=== PATIENT | female | born 1955 | race Caucasian/White ===

== ENCOUNTER 2017-05-28 21:50 | Inpatient (IN) ==
[2017-05-28] MEDS ORDERED: NS 1,000 ML IV ONE (22:14)
[2017-05-28] MEDS ORDERED: SALINE FLUSH 10ml SYRINGE IVF PRN (22:14)
[2017-05-28] MEDS ORDERED: NALOXONE 0.4 MG/ML INJECTION IVP ONE ×2 (22:14→23:20)
--- NOTE | 2017-05-28 22:20 | Emergency Department Report ---
Overdose HPI - General Chief Complaint: Overdose Stated Complaint: n/a Time Seen by Provider: 05/28/17 22:13 - History of Present Illness HPI Narrative: 62-year-old female presents with acute overdose. She had gallbladder surgery yesterday and took 25 oxycodone today as well as possibly drank up to a liter of vodka. EMS states that there is a history of narcotic issues. Patient was found with O2 sats in the 60s and systolic blood pressure 70. - Related Data Home Medications Medication Instructions Recorded Confirmed ClonazePAM [Klonopin] 0.5 mg PO TID PRN 04/11/17 05/28/17 Gabapentin [Neurontin] 600 mg PO TID 04/11/17 05/28/17 Ibuprofen 800 mg PO PRN PRN 04/11/17 05/28/17 Solifenacin Succinate [Vesicare] 10 mg PO DAILY 04/11/17 05/28/17 Venlafaxine HCl [Venlafaxine HCl 150 mg PO DAILY 05/26/17 05/28/17 ER] Oxycodone HCl [Roxicodone] 15 mg PO QID 05/28/17 05/28/17 Allergies Allergy/AdvReac Type Severity Reaction Status Date / Time No Known Allergies Allergy Verified 05/26/17 06:46 Review of Systems All systems: reviewed and negative except as stated PFSH Patient Stated Medical History Cerebrovascular Accident No Paralysis No Seizures No Syncope No Dental Problems Yes: UPPER AND LOWER DENTURES Angina No Cardiac Arrhythmia No Congestive Heart Failure No Coronary Artery Disease No Heart Murmur No Hypertension No Hypotension No Myocardial Infarction No Rheumatic Fever No Valvular Heart Disease No Other Cardiology No Asthma No Bronchitis No Chronic Obstructive Pulmonary No Disease (COPD) Pneumonia No Pulmonary Edema No Pulmonary Embolism No Sleep Apnea Yes: UNDIAGNOSED, PT THINKS SHE HAS IT Tuberculosis No Other Respiratory No Cirrhosis No Gastroesophageal Reflux Yes Disease Gastrointestinal Bleeding No Hepatitis No Hiatal Hernia No Obstructive Bowel No Ulcer No Other GI No Other Yes: taking vesicare-overactive bladder Osteoarthritis No Other Musculoskeletal No MRSA Yes Depression No Endometriosis Yes Clinic Medical History Abdominal pain (Acute Medical) Cholelithiasis (Acute Medical) Contusion of rib on left side (Inactive Medical) Fall (Inactive Medical) Surgical History: Colon resection - Social History Smoking status: Current every day smoker Substance use type: does not use Does patient use chewing tobacco?: No Physical Exam - Limitations Limitations: altered mental status - General General appearance: alert, lethargic - Normal Exams: Head:: Normocephalic without trauma Chest/Respirations:: Clear all baxter, with good airflow, and symmetry bilaterally Abdomen:: Bowel sounds positive, soft, non-tender, non-distended, no hepatosplenomegaly, masses or bruits noted - Cardiovascular Cardiovascular exam: Present: bradycardia Course Vital Signs Temperature 97.7 F 05/28/17 21:55 Pulse Rate 97 05/28/17 21:55 Respiratory Rate 8 L 05/28/17 21:55 Blood Pressure 91/59 05/28/17 21:55 Pulse Oximetry 56 L 05/28/17 21:55 Temperature 97.7 F 05/28/17 21:55 Pulse Rate 84 05/29/17 01:00 Respiratory Rate 20 05/29/17 01:00 Blood Pressure 92/55 05/29/17 01:00 Pulse Oximetry 94 05/29/17 01:00 Overdose - MDM Narrative Medical decision making narrative: Patient required 0.4 mg of Narcan immediately on arrival. Oxygen saturation improved from 70% on 2 L nasal cannula to 94%. Labs were ordered and IV fluids started with 1 L of normal saline. Labs are ordered. White count was elevated at 17 with significant left shift. Chest x-ray shows bilateral aspiration. Patient required fluid resuscitation as well as a second dose of Narcan. Blood cultures ordered, Rocephin 1 g given IV. Creatinine 2.6. Fluid resuscitation initiated. - Differential Diagnosis Likely: suicide attempt by multiple drug overdose, poisoning by opiate or related narcotic, drug overdose, accidental drug ingestion - Medical Records Attestation: I reviewed the patient's medical records. - Lab Data Attestation: I reviewed the patient's lab results. Result diagrams: 05/28/17 23:10 05/28/17 23:10 Lab Results 05/28/17 05/28/17 05/29/17 Range/Units 23:10 23:10 00:04 WBC 17.7 H D (4.5-11.0) T/MM3 RBC 4.14 (4.00-5.20) M/MM3 Hgb 11.0 L (12-16) GM/DL Hct 36.3 (36-46) % MCV 87.7 (80-100) UM3 MCH 26.6 (26-34) UUG MCHC 30.3 L (31-37) GM/DL RDW Std Deviation 46.9 (36.9-50.2) FL Plt Count 372 (130-400) T/MM3 MPV 10.4 (9.4-12.4) UM3 Immature Gran % (Auto) Not performed Neut % (Auto) Not performed Lymph % (Auto) Not performed Jack % (Auto) Not performed Eos % (Auto) Not performed Baso % (Auto) Not performed Neut # (Auto) Not performed Lymph # (Auto) Not performed Jack # (Auto) Not performed Eos # (Auto) Not performed Baso # (Auto) Not performed Abs Immat Gran (auto) Not performed Neutrophils % (Manual) 79.0 H (33-66) % Band Neutrophils % 3.0 (0-6) % Lymphocytes % (Manual) 13.0 L (23-45) % Monocytes % (Manual) 5.0 (0-9.0) % Neutrophils # (Manual) 14.0 H (1.8-7.7) T/MM3 Band Neutrophils # 0.5 T/MM3 Lymphocytes # (Manual) 2.3 (1-4.8) T/MM3 Monocytes # (Manual) 0.9 H (0-0.8) T/MM3 RBC Morph Comment Normal Turbidity < 20 (0-20) Sodium 136 D (134-144) MEQ/L Potassium 4.3 D (3.6-5) MEQ/L Chloride 99 D (98-107) MEQ/L Carbon Dioxide 23 (22-30) MEQ/L Anion Gap 14 (5-15) MEQ/L BUN 19.0 H D (7-17) MG/DL Creatinine 2.6 H D (0.7-1.2) MG/DL GFR Calculation 19 BUN/Creatinine Ratio 7 (6-26) RATIO Glucose 127 H (65-110) MG/DL Calculated Osmolality 266 (261-280) MOSM/KG Calcium 8.4 (8.4-10.2) MG/DL Total Bilirubin 0.80 (0.20-1.30) MG/DL Icterus Index < 2 (0-7) AST 62 H D (14-36) U/L ALT 72 H D (9-52) U/L Alkaline Phosphatase 162 H (38-126) U/L Total Protein 7.4 (6.3-8.2) G/DL Albumin 3.9 (3.5-5.0) G/DL Globulin 3.5 (2.4-3.6) G/DL Albumin/Globulin Ratio 1.1 (1.1-2.2) RATIO Plasma Lactate 1.5 (0.6-2.2) MMOL/L Specimen Hemolysis 34 H (0-25) Salicylates < 1.0 L (2-20) MG/DL Acetaminophen < 10 L (10-30) UG/ML Alcohol, Quantitative <10 (<10) MG/DL - Radiology Data Attestation: I reviewed the patient's radiology results. Disposition Clinical Impression: Poisoning by opiate or related narcotic, Aspiration pneumonia, Renal insufficiency Disposition: 02 To [facility] [place] Condition: Stable Time of Disposition: 02:54 - Seen By: physician
[2017-05-28] MEDS: NS 1,000 ML IV SCH (23:23)
[2017-05-29] MEDS ORDERED: CEFTRIAXONE 1 G in NS 100 ML IV SCH ×2 (00:15→02:00)
[2017-05-29] MEDS ORDERED: CEFTRIAXONE (ER USE ONLY) 1 GM in NS 100 ML IV ONE (01:53)
[2017-05-29] MEDS ORDERED: PIPERACILLIN/TAZOBACTAM 3.375 GM in NS 100 ML IV SCH (02:15)
[2017-05-29] MEDS ORDERED: ONDANSETRON 4 MG/2 ML INJECTION IVP PRN (02:51)
[2017-05-29] MEDS ORDERED: NALOXONE 0.4 MG/ML INJECTION IVP PRN (02:51)
[2017-05-29 03:08] VITALS: BMI 41.7
--- NOTE | 2017-05-29 04:27 | History & Physical Report ---
History of Present Illness Date: 05/29/17 Chief complaint: obtunded HPI: The pt had an outpt open cholecystectomy 2 days ago and was released to go home on 05/27. She was given #40 5mg oxycodones, she was found by her daughter today confused and obtunded, unable to awake or arouse. There were less than 20 tabletes left in the bottle, she told the EMT's that she had also drunk a liter of vodka but to me she states she was "only kidding". The pt was very somnulent during my interview but she was able to answer some questions but quickly nodded off to sleep only after a couple of seconds while I was talking to her. Review of Systems - Constitutional Constitutional: Present: daytime sleepiness, headache(s), lethargy. Absent: fever(s) - EENMT Eyes: Present: as per HPI - Cardiovascular Cardiovascular: Absent: chest pain, edema - Respiratory Respiratory: Absent: cough, dyspnea - Gastrointestinal Gastrointestinal: Present: abdominal pain, constipation. Absent: nausea, vomiting [facility] Patient Stated Medical History Paralysis No Seizures No Syncope No Dental Problems Yes: UPPER AND DENTURES Angina No Cardiac Arrhythmia No Congestive Heart Failure No Coronary Artery Disease No Heart Murmur No Hypertension No Hypotension No Myocardial Infarction No Rheumatic Fever No Valvular Heart Disease No Other Cardiology No Asthma No Bronchitis No Chronic Obstructive Pulmonary No Disease (COPD) Pneumonia No Pulmonary Edema No Pulmonary Embolism No Sleep Apnea Yes: UNDIAGNOSED, PT THINKS SHE HAS IT Tuberculosis No Other Respiratory No Cirrhosis No Gastrointestinal Bleeding No Hepatitis No Hiatal Hernia No Obstructive Bowel No Ulcer No Other GI No Other Yes: taking vesicare-overactive bladder Osteoarthritis Yes Other Musculoskeletal Yes: osteoperosis MRSA Yes Depression Yes Endometriosis Yes Clinic Medical History Abdominal pain (Acute Medical) Cholelithiasis (Acute Medical) Poisoning by opiate or related narcotic (Acute Medical) Aspiration pneumonia (Acute Medical) Renal insufficiency (Acute Medical) Contusion of rib on left side (Inactive Medical) Fall (Inactive Medical) Surgical History: Colon resection - Social History Smoking status: Current every day smoker Substance use type: does not use Alcohol intake frequency: former alcohol drinker Housing: apartment Household members: none Medications Home Medications Medication Instructions Recorded Confirmed Type ClonazePAM [Klonopin] 0.5 mg PO TID PRN 04/11/17 05/28/17 History Gabapentin [Neurontin] 600 mg PO TID 04/11/17 05/28/17 History Ibuprofen 800 mg PO PRN PRN 04/11/17 05/28/17 History Solifenacin Succinate [Vesicare] 10 mg PO DAILY 04/11/17 05/28/17 History Venlafaxine HCl [Venlafaxine HCl 150 mg PO DAILY 05/26/17 05/28/17 History ER] Oxycodone HCl [Roxicodone] 15 mg PO QID 05/28/17 05/28/17 History Allergies Allergy/AdvReac Type Severity Reaction Status Date / Time No Known Allergies Allergy Verified 05/26/17 06:46 Exam Vital Signs: Temperature 97.7 F 05/28/17 21:55 Pulse Rate 84 05/29/17 04:15 Respiratory Rate 20 05/29/17 04:15 Blood Pressure 100/57 05/29/17 02:30 Pulse Oximetry 94 05/29/17 04:15 Height/Weight/BMI: Height 1.52 m Weight 96.9 kg Body Mass Index 41.7 - Constitutional Present: no acute distress, well nourished, somnolent - Routine HEENT Exam Eye: Present: EOMI - Routine Neck Exam Present: supple - Routine Respiratory Exam Present: CTA bilaterally - Routine Cardiovascular Exam Present: RRR, no murmur - Routine Abdominal Exam Present: soft, normoactive bowel sounds, non distended, non tender - Routine Extremities Exam Present: no edema - Routine Back/Spine/Pelvis Exam Back/Spine: Present: full ROM - Routine Neurological Exam Present: altered mental status Results - Labs CBC & Chem 7: 05/28/17 23:10 05/28/17 23:10 - ABG Interpretation ABG results: 05/29/17 03:15 ABG pH 7.310 L ABG pCO2 48 H ABG pO2 78 L ABG HCO3 24 ABG Total CO2 25.7 ABG O2 Saturation 94.0 L ABG Base Excess -2.4 L Assessment and Plan (1) Poisoning by opiate or related narcotic Current visit: Yes Status: Acute (2) Aspiration pneumonia Current visit: Yes Status: Acute (3) Encephalopathy acute Current visit: Yes Status: Acute (4) Encephalopathy acute Current visit: Yes Status: Acute (5) Depression Current visit: Yes Status: Acute (6) Depression Current visit: Yes Status: Acute (7) ARF (acute renal failure) Current visit: Yes Status: Acute (8) ARF (acute renal failure) Current visit: Yes Status: Acute Assessment and Plan: The pt has altered mental status and meets the criteria for encephalopathy either due to infectious source or the large amount of narcotics she took at home. The pt denies any suicidal intention tonight, and is uncertain how many oxycodones she took or if she drank alcohol. We will recheck CXR, but she does have a leukocytosis with questionable infiltrates, placed on empiric zosyn for possible aspiration/ pneumona but also for GI coverage due to recent leeroy surgery. restart home meds. IVFluids being given, recheck Cr/ GFR DVT Prophylaxis: SCD's GI Prophylaxis: Protonix Resuscitation Status: Full Code Hospital Course Summary Disclaimer: The visit summary below is not to be considered part of the above Progress Note.
[2017-05-29] MEDS: NS 1,000 ML IV SCH ×6 (05:40→22:51)
--- NOTE | 2017-05-29 08:01 | XRay Report ---
INDICATION: overdose PROCEDURE: CHEST 2-VIEWS UPRIGHT (PA & LAT) Encounter: Initial COMPARISON: April 29, 2017 FINDINGS: New airspace consolidation in both lower lobes, worse on the left with small left effusion. Upper lung baxter are grossly clear. No pneumothorax. Heart size and mediastinal contours are stable. Pulmonary vascularity is prominent. Impression: New lower lobe pneumonia or aspiration. .
--- NOTE | 2017-05-29 08:12 | Pharmacy Consult- Renal Dosing ---
Gerard Mccabe-Renal Dosing - Laboratory Information 05/29/17 04:09 BUN 20.0 H Creatinine 2.2 H D - Consult Information RENAL DOSING: Zosyn Today's SCr = 2.2 mg/dl. Calculated CrCl = 27 ml/min. Zosyn dosing adjusted based on renal function to: Zosyn 2.25 gm IV Q6H Pharmacy will monitor and adjust dosing as needed. Thank you, Deepali Gresham [facility]
[2017-05-29] MEDS: ENOXAPARIN 40 MG/0.4 ML INJECTION SQ SCH (08:23)
--- NOTE | 2017-05-29 09:06 | XRay Report ---
Indication: pneumonia PROCEDURE: XR chest 1V: Encounter: Initial Comparison: May 28, 2017 Findings: Airspace consolidation in the lower lobes has improved. No new areas of infiltrate. No pneumothorax. Heart size and mediastinal contours are stable. Impression: Improving pneumonia. .
[2017-05-29] MEDS: PIPERACILLIN/TAZOBACTAM 2.25 GM in NS 100 ML IV SCH ×3 (10:11→22:11)
[2017-05-29] MEDS ORDERED: ALBUTEROL/IPRATROPIUM 2.5mg-0.5mg/3ml NEB AEROSOL SCH (11:00)
[2017-05-29] MEDS ORDERED: NS 1,000 ML IV SCH (11:30)
[2017-05-29] MEDS: ALBUTEROL/IPRATROPIUM 2.5mg-0.5mg/3ml NEB AEROSOL SCH ×3 (13:08→20:27)
[2017-05-29] MEDS: POLYETHYL GLYCOL 3350 17gm PACKET PO SCH (13:26)
[2017-05-29] MEDS: GABAPENTIN 600 MG TABLET PO SCH ×2 (16:33→20:29)
[2017-05-29] MEDS: NICOTINE 21 MG PATCH TD SCH (17:58)
[2017-05-29] MEDS: SENNA + DOCUSATE TABLET PO SCH (20:29)
[2017-05-29] MEDS: NS with KCL 20 mEq 1,000 ML IV SCH (22:49)
[2017-05-30] MEDS: ALBUTEROL/IPRATROPIUM 2.5mg-0.5mg/3ml NEB AEROSOL SCH ×7 (00:40→19:43)
[2017-05-30] MEDS: OXYCODONE/APAP 7.5 MG/325 MG TABLET PO PRN ×3 (02:38→22:32)
[2017-05-30] MEDS: PIPERACILLIN/TAZOBACTAM 2.25 GM in NS 100 ML IV SCH ×3 (04:24→15:05)
[2017-05-30] MEDS: NS with KCL 20 mEq 1,000 ML IV SCH ×3 (07:15→15:08)
[2017-05-30] MEDS: NS 1,000 ML IV SCH (07:43)
[2017-05-30] MEDS: NICOTINE 21 MG PATCH TD SCH (08:47)
[2017-05-30] MEDS: ENOXAPARIN 40 MG/0.4 ML INJECTION SQ SCH (08:47)
[2017-05-30] MEDS: POLYETHYL GLYCOL 3350 17gm PACKET PO SCH ×2 (08:47→21:31)
[2017-05-30] MEDS: SENNA + DOCUSATE TABLET PO SCH ×2 (08:47→21:31)
[2017-05-30] MEDS: NICOTINE PATCH REMOVAL TD SCH (08:47)
[2017-05-30] MEDS: GABAPENTIN 600 MG TABLET PO SCH ×3 (08:47→21:32)
--- NOTE | 2017-05-30 13:58 | Neuropsychiatric Consult ---
[facility] HPI Date: 05/30/17 Reason for Consultation: OD Start Time: 11:30 Stop Time: 12:00 History of Present Illness: HPI: 62 Y/O CF who was brought to ED after being found by daughter with increasing confusion. Pt had surgery 2 days prior and it was noted that 20 of her opiates were gone and there was concern for OD. On face to face the pt states she is not sure what happened. She states her neighbor gave her a pain pill and she is not sure what it was. She states she was not aware of taking more than prescribed opiates. She does report feeling depressed and denies S/ I. She states she was not trying to harm herself and would not harm herself due to her jainism beliefs and her family. STRESSORS: States her ex spends alot of time at her house which is a stressor. She is also dealing with chronic pain. PSYCH ROS: Pt reports feeling depressed with low energy and motivation, decreased interest and feelings of guilt. Denies S/I. Reports anxiety at times. Denies yony or psychosis. PAST PSYCH: Pt states she has been on numerous meds in the past. She is currently on Effexor for the last month by her PCP and feels it is helpful. She denies ever trying to harm herself and has never been in a psychiatric hospital. [facility] Patient Stated Medical History Paralysis No Seizures No Syncope No Dental Problems Yes: UPPER AND DENTURES Angina No Cardiac Arrhythmia No Congestive Heart Failure No Coronary Artery Disease No Heart Murmur No Hypertension No Hypotension No Myocardial Infarction No Rheumatic Fever No Valvular Heart Disease No Other Cardiology No Asthma No Bronchitis No Chronic Obstructive Pulmonary No Disease (COPD) Pneumonia No Pulmonary Edema No Pulmonary Embolism No Sleep Apnea Yes: UNDIAGNOSED, PT THINKS SHE HAS IT Tuberculosis No Other Respiratory No Cirrhosis No Gastrointestinal Bleeding No Hepatitis No Hiatal Hernia No Obstructive Bowel No Ulcer No Other GI No Other Yes: taking vesicare-overactive bladder Osteoarthritis Yes Other Musculoskeletal Yes: osteoperosis MRSA Yes Depression Yes Endometriosis Yes Clinic Medical History Abdominal pain (Acute Medical) Cholelithiasis (Acute Medical) Poisoning by opiate or related narcotic (Acute Medical) Aspiration pneumonia (Acute Medical) Renal insufficiency (Acute Medical) Encephalopathy acute (Acute Medical) Encephalopathy acute (Acute Medical) Depression (Acute Medical) Depression (Acute Medical) ARF (acute renal failure) (Acute Medical) ARF (acute renal failure) (Acute Medical) Contusion of rib on left side (Inactive Medical) Fall (Inactive Medical) Surgical History: Colon resection - Social History Smoking status: Current every day smoker Mental Status Exam Vitals: Last Vital Signs Temp 95.5 F L 05/30/17 11:00 Pulse 98 05/30/17 11:00 Resp 18 05/30/17 11:00 BP 123/71 05/30/17 11:00 Pulse Ox 93 05/30/17 11:20 Height: 1.52 m Weight: 103.4 kg - Mental Status Exam Muscle Strength/Tone: Normal Dressing: Casual Grooming: Good Attitude: Cooperative Motor Activity: Normal Eye Contact: Good Speech: Normal Volume: Normal Rhythm: Appropriate Rhythm Orientation: Oriented X4 Mood: Depressed Affect: Sad Rate of Thoughts: Appropriate Rate Thought Organization: Organized Associations: Intact Abstract Reasoning: Intact, able to abstract Computation: Intact Thought Content: Normal Perception/Psychotic: Perception Normal Language: Naming Intact Fund of Knowledge: Appropriate Memory: Grossly Intact Suicidal Ideation: None Homicidal Ideation: None Insight: Limited Judgement: Limited Impulse Control: Fair - Laboratory Result Diagrams: 05/30/17 06:44 05/30/17 06:44 Laboratory Results - last 24 hr 05/29/17 05/29/17 05/29/17 15:21 15:21 17:10 WBC RBC Hgb Hct MCV MCH MCHC RDW Std Deviation Plt Count MPV Immature Gran % (Auto) Neut % (Auto) Lymph % (Auto) Price % (Auto) Eos % (Auto) Baso % (Auto) Neut # (Auto) Lymph # (Auto) Price # (Auto) Eos # (Auto) Baso # (Auto) Abs Immat Gran (auto) Turbidity < 20 Sodium 140 Potassium 3.4 L Chloride 106 Carbon Dioxide 24 Anion Gap 10 BUN 20.0 H Creatinine 1.8 H D GFR Calculation 28 BUN/Creatinine Ratio 11 Glucose 100 Calculated Osmolality 272 Calcium 7.6 L Phosphorus Magnesium Icterus Index < 2 Albumin Specimen Hemolysis < 15 Urine Opiates Screen Negative Ur Oxycodone Screen Positive Urine Methadone Screen Negative Ur Propoxyphene Screen Negative Ur Barbiturates Screen Negative U Tricyclic Antidepress Negative Ur Phencyclidine Scrn Negative Ur Amphetamines Screen Negative U Methamphetamines Scrn Negative U Benzodiazepines Scrn Negative Urine Cocaine Screen Negative U Cannabinoids Screen Negative Ur Drug Screen Confirm Sent out 05/30/17 05/30/17 06:44 06:44 WBC 6.8 D RBC 3.17 L Hgb 8.5 L D Hct 27.6 L D MCV 87.1 MCH 26.8 MCHC 30.8 L RDW Std Deviation 44.5 Plt Count 249 MPV 10.1 Immature Gran % (Auto) 0.1 Neut % (Auto) 64.3 Lymph % (Auto) 22.0 L Price % (Auto) 8.8 Eos % (Auto) 4.7 H Baso % (Auto) 0.1 Neut # (Auto) 4.4 Lymph # (Auto) 1.5 Price # (Auto) 0.6 Eos # (Auto) 0.3 Baso # (Auto) 0.0 Abs Immat Gran (auto) 0.01 Turbidity < 20 Sodium 144 Potassium 3.8 Chloride 112 H Carbon Dioxide 24 Anion Gap 8 BUN 16.0 Creatinine 1.1 D GFR Calculation 50 BUN/Creatinine Ratio 15 Glucose 111 H Calculated Osmolality 279 Calcium 7.8 L Phosphorus 3.3 Magnesium 2.0 Icterus Index < 2 Albumin 2.8 L Specimen Hemolysis < 15 Urine Opiates Screen Ur Oxycodone Screen Urine Methadone Screen Ur Propoxyphene Screen Ur Barbiturates Screen U Tricyclic Antidepress Ur Phencyclidine Scrn Ur Amphetamines Screen U Methamphetamines Scrn U Benzodiazepines Scrn Urine Cocaine Screen U Cannabinoids Screen Ur Drug Screen Confirm Assessment and Plan (1) Major depressive disorder with current active episode Qualifiers: Major depression recurrence: recurrent Major depression episode severity: moderate Qualified Code(s): F33.1 - Major depressive disorder, recurrent, moderate Current visit: Yes Status: Acute Pt does not appear to be an imminent danger to herself and denies she was trying to harm herself. Pt states she will be staying with her daughter on [place] which I would agree with. Would recommend continuing Effexor as it it a good choice to help with depression and pain (2) Encephalopathy acute Problem details: Resolving Current visit: Yes Status: Acute
--- NOTE | 2017-05-30 15:53 | Progress Note ---
<Renate Sanchez D - Last Filed: 05/30/17 15:49> - Date 05/30/17 Subjective: Wanda was eating, but still complained of significant abdominal pain. She states that her abd pain limits her ability to breathe well, and is feeling SOA. No nausea. She has not yet had a BM. She denies feeling dizzy. She's noticed swelling to her legs, which is tight and painful. Objective Vital signs: Temperature 95.7 F L 05/30/17 15:00 Pulse Rate 94 05/30/17 15:19 Respiratory Rate 18 05/30/17 15:00 Blood Pressure 125/78 05/30/17 15:00 Pulse Oximetry 97 05/30/17 15:00 Height/Weight/BMI: Height 1.52 m Weight 103.4 kg Body Mass Index 41.7 - Constitutional Present: no acute distress, well nourished, well developed, obese - Routine HEENT Exam Head: Present: normocephalic Eye: Absent: conjunctival icterus ENT: Present: mucous membranes moist - Routine Respiratory Exam Present: decreased breath sounds, rales (RLL) - Routine Cardiovascular Exam Present: RRR, S1, S2 - Routine Abdominal Exam Present: tenderness (diffuse), distended, surgical scars. Absent: normoactive bowel sounds (hypoactive) Comments: Abd incisions have local erythemic reaction to malcolm. No drainage. - Routine Extremities Exam Present: edema (1+ BLE) - Routine Skin Exam Present: intact, dry, warm - Routine Neurological Exam Present: alert, oriented X3 - Routine Psychiatric Exam Present: normal affect, normal thought process, cooperative Results - Labs CBC & Chem 7: 05/30/17 06:44 05/30/17 06:44 Microbiology Results: Microbiology 05/29/17 11:05 Urine, Voided (Cc/notcc) Urine Culture - Final Mixed Bacterial Kris - ABG Interpretation ABG results: 05/29/17 03:15 ABG pH 7.310 L ABG pCO2 48 H ABG pO2 78 L ABG HCO3 24 ABG Total CO2 25.7 ABG O2 Saturation 94.0 L ABG Base Excess -2.4 L Assessment and Plan (1) Poisoning by opiate or related narcotic Current visit: Yes Status: Acute (2) Aspiration pneumonia Current visit: Yes Status: Acute (3) Encephalopathy acute Problem details: Resolving Current visit: Yes Status: Acute (4) Encephalopathy acute Current visit: Yes Status: Acute (5) Depression Current visit: Yes Status: Acute (6) ARF (acute renal failure) Current visit: Yes Status: Acute Assessment and Plan: IMPRESSION Altered mental status/toxic-metabolic encephalopathy Narcotic overdose, likely accidental Acute renal failure Hypotension Hypoxia/acute hypoxic respiratory failure Aspiration pneumonia s/p cholecystectomy 05/27 Depression/anxiety/panic attacks PLAN Leukocytosis has resolved. UC +mixed kris. Cont Zosyn for aspiration pneumonia ; consider consulting Dr. Hill d/t recent sx. Hgb has decreased to 8.5. Check stool for occult blood and repeat CBC in am. Renal function has stabilized and is at baseline. Weight trending up with positive fluid balance daily; admit weight was 96.9 and today 103.4 kg. BP has stabilized. DC IVF & consider diuresis. Unable to wean off oxygen - sats dropped to 85% on room air. Currently on 1L. No BM - increase bowel regimen. Encourage ambulation/activity which will help lungs and bowels. Dr. Porras evaluated Wanda - recommends continuing Effexor; does not believe she is a danger to self. DVT Prophylaxis: SCD's Resuscitation Status: Full Code Hospital Course Summary Disclaimer: The visit summary below is not to be considered part of the above Progress Note. Hospital Course: 05/29/17 A/P: Altered mental status/toxic-metabolic encephalopathy Narcotic overdose, likely accidental Acute renal failure Hypotension Hypoxia/acute hypoxic respiratory failure Aspiration pneumonia s/p cholecystectomy 05/27 Depression/anxiety/panic attacks Minimal urine output since admission-voided once this a.m. low-volume with concentrated urine. Sample sent for UA and urine sodium/creatinine. Suspect ATN due to hypotension. Continue fluids; additional 1 L fluid bolus being given now. Continue Zosyn for aspiration; sputum culture be obtained. Breathing treatments when necessary and scheduled. Discussed with RT. Will clarify chronic pain medications with Dr. Benavidez's office, discharged with ibuprofen in addition to OxyIR-nonsteroidals contraindicated at present. Mental status clearing, history suggests accidental overdose and no clear intent to harm herself. Will ask psychiatry to evaluate nonetheless due to chronic history depression/panic attacks and vague description of why/how medications were being taken. Case management/social work involved. Will require continued inpatient care due to ongoing hypotension and hypoxia. Converted to inpatient. 05/30/17 Leukocytosis has resolved. UC +mixed kris. Cont Zosyn for aspiration pneumonia ; consider consulting Dr. Hill d/t recent sx. Hgb has decreased to 8.5. Check stool for occult blood and repeat CBC in am. Renal function has stabilized and is at baseline. Weight trending up with positive fluid balance daily; admit weight was 96.9 and today 103.4 kg. BP has stabilized. DC IVF & consider diuresis. Unable to wean off oxygen - sats dropped to 85% on room air. Currently on 1L. No BM - increase bowel regimen. Encourage ambulation/activity which will help lungs and bowels. Dr. Porras evaluated Wanda - recommends continuing Effexor; does not believe she is a danger to self. <Sailaja Baum - Last Filed: 05/30/17 18:55> - Date 05/30/17 Objective Vital signs: Results - Labs CBC & Chem 7: 05/30/17 06:44 05/30/17 06:44 Assessment and Plan (1) Poisoning by opiate or related narcotic Current visit: Yes Status: Acute (2) Aspiration pneumonia Current visit: Yes Status: Acute (3) Encephalopathy acute Problem details: Resolving Current visit: Yes Status: Resolved (4) ARF (acute renal failure) Current visit: Yes Status: Resolved Assessment and Plan: I have independently evaluated and examined this patient. I reviewed the chart, the patient's history, and the PRECISION LENS TECHNICIAN/PA's documented findings as above. We discussed and formulated the assessment and plan as above with additions as below: Wanda reports persistent discomfort in her stomach (due to cholecystectomy), complains of her legs are swollen and reports that she is urinating normally now. She is passing gas but has not had a bowel movement since admission. The patient is alert and responds to questions appropriately. 97%-1 L per nasal cannula Breath sounds are slightly diminished at the bases bilaterally but there is no wheezing or extra sounds. Abdomen is soft, surgical ports are all clean and dry, no significant tenderness. Trace edema bilateral lower extremities Ongoing complaints of abdominal discomfort, taking Percocet sparingly for pain control. Renal function improved, can resume ibuprofen. Discontinue IV fluids; will ask Dr. Hill to reassess abdomen tomorrow. Appreciate Dr. Porras's input. Repeat chest x-ray in a.m., anticipate discharge tomorrow if able to titrate off oxygen. Hospital Course Summary Disclaimer: The visit summary below is not to be considered part of the above Progress Note.
[2017-05-30] MEDS ORDERED: BISACODYL 10 MG SUPPOSITORY RECTALLY PRN (15:59)
[2017-05-30] MEDS ORDERED: IBUPROFEN 600 MG PO PRN (18:48)
[2017-05-30] MEDS ORDERED: ALBUTEROL/IPRATROPIUM 2.5mg-0.5mg/3ml NEB AEROSOL PRN (18:52)
[2017-05-30] MEDS ORDERED: IBUPROFEN 600 MG TABLET PO PRN (19:42)
[2017-05-30] MEDS: PIPERACILLIN/TAZOBACTAM 3.375 GM in NS 100 ML IV SCH (22:24)
[2017-05-31] MEDS: OXYCODONE/APAP 7.5 MG/325 MG TABLET PO PRN ×4 (03:56→23:56)
[2017-05-31] MEDS: PIPERACILLIN/TAZOBACTAM 3.375 GM in NS 100 ML IV SCH ×3 (03:56→16:57)
[2017-05-31] MEDS: ALBUTEROL/IPRATROPIUM 2.5mg-0.5mg/3ml NEB AEROSOL SCH ×4 (07:51→18:38)
[2017-05-31] MEDS: GABAPENTIN 600 MG TABLET PO SCH ×3 (08:28→23:57)
[2017-05-31] MEDS: SENNA + DOCUSATE TABLET PO SCH ×2 (08:28→23:57)
[2017-05-31] MEDS: NICOTINE 21 MG PATCH TD SCH (08:29)
[2017-05-31] MEDS: ENOXAPARIN 40 MG/0.4 ML INJECTION SQ SCH (08:29)
[2017-05-31] MEDS: NICOTINE PATCH REMOVAL TD SCH (08:29)
[2017-05-31] MEDS: POLYETHYL GLYCOL 3350 17gm PACKET PO SCH ×2 (08:30→23:58)
[2017-05-31] MEDS ORDERED: POLYETHYL GLYCOL 3350 17gm PACKET PO SCH (09:00)
--- NOTE | 2017-05-31 09:26 | XRay Report ---
INDICATION: pneumonia/hypoxia PROCEDURE: CHEST 2-VIEWS UPRIGHT (PA & LAT) Encounter: Initial COMPARISON: May 29, 2017 FINDINGS: Airspace consolidation in the right lower lung field appears slightly worsened. Persistent left basilar airspace disease with a small left effusion. No pneumothorax. Heart size and mediastinal contours are stable. Pulmonary vascularity is mildly prominent. Impression: Persistent pneumonia with slight worsening on the right. .
--- NOTE | 2017-05-31 15:19 | Progress Note ---
<WillTrena D - Last Filed: 05/31/17 15:16> - Date 05/31/17 Subjective: Wanda is seen today in follow up. She is a bit sleepy, but is awake and overall doing well. Continue to endorse a fairly non-productive cough. SOA is present, but is improving. She did demonstrate ongoing need for oxygen with ambulation on RA today. No fever. Eating well. Chart is reviewed for collateral information. Objective Vital signs: Temperature 97.3 F 05/31/17 11:04 Pulse Rate 76 05/31/17 14:45 Respiratory Rate 18 05/31/17 14:45 Blood Pressure 120/70 05/31/17 11:00 Pulse Oximetry 92 05/31/17 14:45 Height/Weight/BMI: Height 1.52 m Weight 102.9 kg Body Mass Index 41.7 - Constitutional Present: no acute distress, morbidly obese, cooperative - Routine HEENT Exam Head: Present: normocephalic, atraumatic Eye: Present: EOMI, PERRL - Routine Respiratory Exam Present: decreased breath sounds, wheezes (Faint wheezes in bases. Diminished breath sounds. ), diminished air movement. Absent: accessory muscle use - Routine Cardiovascular Exam Present: RRR, S1, S2, no murmur - Routine Abdominal Exam Present: soft, normoactive bowel sounds, non distended, non tender - Routine Extremities Exam Present: no edema, non tender - Routine Musculoskeletal Exam Musculoskeletal: Present: no clubbing or cyanosis, normal strength, moving extremities well - Routine Skin Exam Present: intact, dry, warm - Routine Neurological Exam Present: alert, oriented X3, moving all extremities - Routine Psychiatric Exam Present: normal affect, normal thought process, cooperative Results - Labs CBC & Chem 7: 05/31/17 05:25 05/31/17 05:25 Microbiology Results: Microbiology 05/29/17 11:05 Urine, Voided (Cc/notcc) Urine Culture - Final Mixed Bacterial Kris - Impressions CT from prior visit. Impression: 1. Distended gallbladder with a gallstone at the neck could represent cholecystitis. Right upper quadrant ultrasound may be helpful for further evaluation. 2. Bilateral pleural effusions with areas of pleural thickening and rounded atelectasis in the lower lobes suggesting some degree of chronic pleural disease although superimposed acute infectious or inflammatory process cannot be excluded. . - Imaging and Cardiology CT scan - abdomen Status: image reviewed by me Additional comments: CXR Impression: Persistent pneumonia with slight worsening on the right. . Assessment and Plan (1) Poisoning by opiate or related narcotic Current visit: Yes Status: Acute (2) Aspiration pneumonia Current visit: Yes Status: Acute (3) Encephalopathy acute Problem details: Resolving Current visit: Yes Status: Resolved (4) ARF (acute renal failure) Current visit: Yes Status: Resolved Assessment and Plan: A/P: Altered mental status/toxic-metabolic encephalopathy Narcotic overdose, likely accidental Acute renal failure Hypotension Hypoxia/acute hypoxic respiratory failure Aspiration pneumonia s/p cholecystectomy 05/27 Depression/anxiety/panic attacks Plan: 05/31/17 Continue supportive care. She is slowly improving. Attempt to wean O2- when stable on RA, plan for home. She will need an outpt. sleep study; consider overnoc oximetry. Continue nebs, I.S., O2. Push activity. CXR is worsening, but clinically she is doing ok. Continue Zosyn to cover for aspiration pneumonia. She did have pleural effusions on prior CT A/P. May need to CT chest if she is not improving as expected. Continue pain control. Hold home pain/anxiety meds. TACO is improving. Her weight is up around 6 kg, but intravascularly dry on lab. Will hold off on any diuresis for now. Repeat CXR, labs in AM. DVT Prophylaxis: Lovenox Resuscitation Status: Full Code - Time spent with patient Time with patient PN: 30 minutes Hospital Course Summary Disclaimer: The visit summary below is not to be considered part of the above Progress Note. Hospital Course: 05/29/17 A/P: Altered mental status/toxic-metabolic encephalopathy Narcotic overdose, likely accidental Acute renal failure Hypotension Hypoxia/acute hypoxic respiratory failure Aspiration pneumonia s/p cholecystectomy 05/27 Depression/anxiety/panic attacks Minimal urine output since admission-voided once this a.m. low-volume with concentrated urine. Sample sent for UA and urine sodium/creatinine. Suspect ATN due to hypotension. Continue fluids; additional 1 L fluid bolus being given now. Continue Zosyn for aspiration; sputum culture be obtained. Breathing treatments when necessary and scheduled. Discussed with RT. Will clarify chronic pain medications with Dr. Benavidez's office, discharged with ibuprofen in addition to OxyIR-nonsteroidals contraindicated at present. Mental status clearing, history suggests accidental overdose and no clear intent to harm herself. Will ask psychiatry to evaluate nonetheless due to chronic history depression/panic attacks and vague description of why/how medications were being taken. Case management/social work involved. Will require continued inpatient care due to ongoing hypotension and hypoxia. Converted to inpatient. 05/30/17 Leukocytosis has resolved. UC +mixed kris. Cont Zosyn for aspiration pneumonia ; consider consulting Dr. Hill d/t recent sx. Hgb has decreased to 8.5. Check stool for occult blood and repeat CBC in am. Renal function has stabilized and is at baseline. Weight trending up with positive fluid balance daily; admit weight was 96.9 and today 103.4 kg. BP has stabilized. DC IVF & consider diuresis. Unable to wean off oxygen - sats dropped to 85% on room air. Currently on 1L. No BM - increase bowel regimen. Encourage ambulation/activity which will help lungs and bowels. Dr. Porras evaluated Wanda - recommends continuing Effexor; does not believe she is a danger to self. 05/31/17 15:27 Continue supportive care. She is slowly improving. Attempt to wean O2- when stable on RA, plan for home. She will need an outpt. sleep study; consider overnoc oximetry. Continue nebs, I.S., O2. Push activity. CXR is worsening, but clinically she is doing ok. Continue Zosyn to cover for aspiration pneumonia. She did have pleural effusions on prior CT A/P. May need to CT chest if she is not improving as expected. Continue pain control. Hold home pain/anxiety meds. TACO is improving. Her weight is up around 6 kg, but intravascularly dry on lab. Will hold off on any diuresis for now. Repeat CXR, labs in AM. <Sailaja Baum - Last Filed: 05/31/17 21:49> - Date 05/31/17 Results - Labs CBC & Chem 7: 05/31/17 05:25 05/31/17 05:25 Assessment and Plan (1) Poisoning by opiate or related narcotic Current visit: Yes Status: Acute (2) Aspiration pneumonia Current visit: Yes Status: Acute (3) Encephalopathy acute Problem details: Resolving Current visit: Yes Status: Resolved (4) ARF (acute renal failure) Current visit: Yes Status: Resolved Assessment and Plan: I have independently evaluated and examined this patient. I reviewed the chart, the patient's history, and the GAS STATION CASHIER/PA's documented findings as above. We discussed and formulated the assessment and plan as above with additions as below: Wanda reports she continues to improve, she denies overt dyspnea at rest but became short of breath ambulating. Exercise oximetry is not charted but nursing report oxygen sat dropped to 84-85% on room air with activity this morning; continue desaturation this afternoon although not quite as bad. Evaluated by Dr. Hill due to complaints of ongoing abdominal discomfort-he did not feel there are any ongoing abdominal concerns. Afebrile, alert Breath sounds at the bases are slightly coarse in air flow is diminished Abdomen soft, minimal tenderness on palpation of the abdomen Chest x-ray reviewed by myself, increased left pleural effusion and residual bilateral infiltrate Borderline oxygenation at rest, desaturates with activity although oxygenation improving progressively. Check overnight oximetry tonight, reassess oxygenation with activity in a.m. Convert from Zosyn to Augmentin. Approaching discharge. Renal function has normalized Discussed with Dr. Hill. Hospital Course Summary Disclaimer: The visit summary below is not to be considered part of the above Progress Note.
[2017-06-01] MEDS: AMOX/CLAV 875 MG/125 MG TABLET PO SCH ×2 (00:11→08:59)
[2017-06-01] MEDS: OXYCODONE/APAP 7.5 MG/325 MG TABLET PO PRN ×3 (04:55→14:46)
[2017-06-01] MEDS: ALBUTEROL/IPRATROPIUM 2.5mg-0.5mg/3ml NEB AEROSOL SCH ×3 (07:12→15:26)
--- NOTE | 2017-06-01 07:13 | Consultation ---
DATE OF CONSULTATION 05/31/2017 HISTORY This patient is 62 years old This patient underwent multiport robotic laparoscopic cholecystectomy with extensive lysis of intraabdominal adhesions on 05/26/[address] Hill at [facility]. The patient appeared to do well after that operation. She was dismissed from [facility] on 05/27/2017. The patient was brought into [facility] Emergency Room late on the evening of 05/28/2017. There the patient appeared to have an acute overdose at this time. It appeared that the patient had taken 25 of the 5 mg oxycodone tablets and possibly drank up to a liter of vodka. EMS did report that the patient has a history of narcotic issues. The patient was found to have oxygen saturations in the 60s and a systolic blood pressure of 70 at the time of initial evaluation at the emergency room. The patient was resuscitated. A chest x-ray was performed. The patient appeared to have bilateral aspiration pneumonia. White blood cell count was 17,700 at the time of evaluation in the Emergency Room. There were 3 bands. The patient was admitted to [facility] and treated for the drug overdose and the aspiration pneumonia. The patient has gradually improved with treatment at [facility]. She is getting closer to being discharged from the hospital at this time. The patient does still have some abdominal pain associated with the multiple incisions from her operation on 05/26/2017. Consultation was requested for evaluation of the abdominal pain. PHYSICAL EXAMINATION VITAL SIGNS: Temperature is 97.3 degrees Fahrenheit oral. Pulse is 78. Respiratory rate is 16. Blood pressure is 92% on room air. ABDOMEN: The patient has multiple incisions from the recent operation performed on 05/26/2017. These are laparoscopy incisions. All the incisions look good. The abdomen is soft. The abdomen is nontender at areas that are away from the incisions. LABORATORY DATA White blood cell count is 6700 with no bands today. Hemoglobin is 8.7. Hematocrit is 28.2. IMPRESSION 1. Status post multiport robotic laparoscopic cholecystectomy with extensive lysis of intraabdominal adhesions on 05/26/2017. 2. Postoperative incisional discomfort at the abdomen. 3. Anemia. RECOMMENDATIONS 1. Continue treatment for aspiration pneumonia until the patient is ready to be discharged from the hospital. 2. I will have the patient follow up with me at the office and recheck the abdominal incisions and recheck the status of the abdomen after she has been dismissed from the hospital. LONNIE
[2017-06-01 08:08] VITALS: PULSE 76
[2017-06-01] MEDS ORDERED: ALBUTEROL/IPRATROPIUM 2.5mg-0.5mg/3ml NEB AEROSOL PRN (08:45)
[2017-06-01] MEDS: GABAPENTIN 600 MG TABLET PO SCH ×3 (09:00→15:57)
[2017-06-01] MEDS: ENOXAPARIN 40 MG/0.4 ML INJECTION SQ SCH (09:00)
[2017-06-01] MEDS: SENNA + DOCUSATE TABLET PO SCH (09:00)
[2017-06-01] MEDS: POLYETHYL GLYCOL 3350 17gm PACKET PO SCH (09:01)
--- NOTE | 2017-06-01 10:25 | XRay Report ---
INDICATION: SOA, pneumonia PROCEDURE: CHEST 2-VIEWS UPRIGHT (PA & LAT) Encounter: Initial COMPARISON: May 31, 2017 FINDINGS: Airspace consolidation in the right lung base is stable. Left basilar infiltrate and small left effusion is also unchanged. There is suggestion of some loculation of the pleural fluid on the lateral view. No pneumothorax. Cardiac silhouette remains enlarged. Mediastinal contours are stable. Pulmonary vascularity is unchanged. Impression: Continued lower lobe pneumonia with possible loculation in the left pleural effusion. .
[2017-06-01] MEDS: NICOTINE 21 MG PATCH TD SCH (11:25)
[2017-06-01] MEDS: NICOTINE PATCH REMOVAL TD SCH (11:26)
[2017-06-01 12:08] VITALS: BP 121/73; RESP 16; TEMP 96.9; O2SAT 90
--- NOTE | 2017-06-01 12:58 | Discharge Summary ---
<GuidoSnehal L - Last Filed: 06/01/17 15:34> Discharge Information Anticipated date of discharge: 06/01/17 Primary care physician: Consults: - Discharge Diagnosis (1) Poisoning by opiate or related narcotic Status: Acute (2) Aspiration pneumonia Status: Acute (3) Encephalopathy acute Status: Resolved (4) ARF (acute renal failure) Status: Resolved Altered mental status/toxic-metabolic encephalopathy Narcotic overdose, likely accidental Acute renal failure Hypotension Hypoxia/acute hypoxic respiratory failure Aspiration pneumonia s/p cholecystectomy 05/27 Depression/anxiety/panic attacks - Laboratory Labs: Laboratory Tests 05/29/17 03:15 ABG pH 7.310 L ABG pCO2 48 H ABG pO2 78 L ABG HCO3 24 ABG Total CO2 25.7 ABG O2 Saturation 94.0 L ABG Base Excess -2.4 L O2 Delivery Method Nasal cannula, liter FiO2 (liters per min) 4 Laboratory Tests 05/28/17 05/30/17 06/01/17 23:10 06:44 04:25 WBC 17.7 H D 6.8 D 5.6 Laboratory Tests 05/28/17 05/29/17 06/01/17 23:10 11:26 04:25 Hgb 11.0 L 9.8 L 8.8 L Laboratory Tests 05/28/17 05/29/17 06/01/17 23:10 17:10 04:25 Creatinine 2.6 H D 1.8 H D 0.7 Laboratory Tests 05/29/17 11:05 Ur Collection Type Urine, clean catch Urine Color Yellow Urine Clarity Cloudy Urine pH 5.0 Ur Specific [place] >=1.030 H Urine Protein 1+ A Urine Glucose (UA) Negative Urine Ketones Trace A Urine Occult Blood 2+ A Urine Nitrate Negative Urine Bilirubin 1+ A Urine Urobilinogen 0.2 Ur Leukocyte Esterase Negative Urine RBC 1-3 Urine WBC 10-20 H Ur Squamous Epith Cells >50 Urine Bacteria 3+ H Hyaline Casts 3-5 Urine Mucus Present Laboratory Tests 05/29/17 11:05 Ur Random Creatinine 199.1 Ur Random Sodium < 5 L Laboratory Tests 05/31/17 03:24 Stool Occult Blood Negative - Radiology Radiology: Chest x-ray 05/28/17 Impression: New lower lobe pneumonia or aspiration. Chest x-ray 05/29/17 Impression: New lower lobe pneumonia or aspiration. Chest x-ray 05/31/17 Impression: Persistent pneumonia with slight worsening on the r Chest x-ray 06/01/17 Impression: Continued lower lobe pneumonia with possible loculation in the left pleural effusion. History of Present Illness HPI: Mrs. Bettencourt is a 62-year-old female who underwent multiport robotic laparoscopic cholecystectomy with extensive adhesiolysis on 05/26/[address] Hill. She was discharged following day with prescription for 40 tablets of oxycodone IR 5 mg. The patient has chronic back pain and reports using chronic pain medications at home although cannot currently identify home regimen. She's previously taken 10 mg of something (questionably OxyContin) and subsequently thought she could take 2-5 mg tablets at a time and double the dose taking 4 tablets to account for surgical pain. However fatigued took this is unclear. Nonetheless she was found by her daughter to partially 9:30 yesterday evening confused. EMS was called and it was reported the patient to take and 25 tablets of OxyIR in the 24 hours since discharge. The patient was alert and oriented 3 when they arrived but groggy. Pupils were 2 mm in size and oxygen saturation was 82% improving with supplemental O2. Initial blood pressure was 80/60. Patient joked with EMS that she had ingested vodka but in fact does not drink and is adamant that she was merely joking. ER evaluation revealed persistent hypotension, initial respiratory rate of 8, hypoxia requiring supplemental oxygen, and left lower lobe infiltrate suggesting aspiration. Patient was admitted to the intensive care unit due to narcotic overdose and hypertension. Patient was described as drowsy on arrival and couldn't provide only limited history due to somnolence. Patient adamantly denies intent to harm herself indicating only that she was having significant pain from her gallbladder and due to neck pain that has developed since surgery. Objective Vital signs: Temperature 96.9 F 06/01/17 12:00 Pulse Rate 76 06/01/17 12:00 Respiratory Rate 16 06/01/17 12:00 Blood Pressure 121/73 06/01/17 12:00 Pulse Oximetry 90 06/01/17 12:00 Height/Weight/BMI: Height 1.52 m Weight 106.8 kg Body Mass Index 41.7 - Constitutional Present: no acute distress, well nourished, well developed - Routine Respiratory Exam Present: decreased breath sounds (RLL), CTA bilaterally. Absent: wheezes - Routine Cardiovascular Exam Present: RRR. Absent: murmur - Routine Abdominal Exam Present: soft, normoactive bowel sounds, non distended. Absent: tenderness - Routine Extremities Exam Present: no edema, normal capillary refill - Routine Skin Exam Present: dry, warm - Routine Neurological Exam Present: alert, oriented X3, CN II-XII intact - Routine Lymphatic Exam Lymphatic: Absent: adenopathy - Routine Psychiatric Exam Present: normal affect, cooperative Hospital Course Hospital course: 05/29/17 Minimal urine output since admission-voided once this a.m. low-volume with concentrated urine. Sample sent for UA and urine sodium/creatinine. Suspect ATN due to hypotension. Continue fluids; additional 1 L fluid bolus being given now. Continue Zosyn for aspiration; sputum culture be obtained. Breathing treatments when necessary and scheduled. Discussed with RT. Will clarify chronic pain medications with Dr. Benavidez's office, discharged with ibuprofen in addition to OxyIR-nonsteroidals contraindicated at present. Mental status clearing, history suggests accidental overdose and no clear intent to harm herself. Will ask psychiatry to evaluate nonetheless due to chronic history depression/panic attacks and vague description of why/how medications were being taken. Case management/social work involved. Will require continued inpatient care due to ongoing hypotension and hypoxia. Converted to inpatient. 05/30/17 Leukocytosis has resolved. UC +mixed kris. Cont Zosyn for aspiration pneumonia ; consider consulting Dr. Hill d/t recent sx. Hgb has decreased to 8.5. Check stool for occult blood and repeat CBC in am. Renal function has stabilized and is at baseline. Weight trending up with positive fluid balance daily; admit weight was 96.9 and today 103.4 kg. BP has stabilized. DC IVF & consider diuresis. Unable to wean off oxygen - sats dropped to 85% on room air. Currently on 1L. No BM - increase bowel regimen. Encourage ambulation/activity which will help lungs and bowels. Dr. Porras evaluated Wanda - recommends continuing Effexor; does not believe she is a danger to self. 05/31/17 15:27 Continue supportive care. She is slowly improving. Attempt to wean O2- when stable on RA, plan for home. She will need an outpt. sleep study; consider overnoc oximetry. Continue nebs, I.S., O2. Push activity. CXR is worsening, but clinically she is doing ok. Continue Zosyn to cover for aspiration pneumonia. She did have pleural effusions on prior CT A/P. May need to CT chest if she is not improving as expected. Continue pain control. Hold home pain/anxiety meds. TACO is improving. Her weight is up around 6 kg, but intravascularly dry on lab. Will hold off on any diuresis for now. Repeat CXR, labs in AM. 06/01/17 Overnight oximetry was normal. Patient walked today without O2 with no probs. Labs and vitals are stable. Her CXR shows possible loculation in the L pleural effusion, but patient clinically continues to improve. Pt ready to be discharged. She is going to stay with her daughter and her daughter will manage her meds. She will also have home health services. Was instructed not to take more than 4 Percocet per day. Will continue Augmentin through 06/07/17. She needs close f-u with her PCP. Should see Dr Benavidez later this week. See Dr. Hill for f-u 06/03/17. Patient will need CXR and repeat CMP and CBC within a week. Time spent with patient: discharge greater than 30 minutes DVT Prophylaxis: SCD's, Lovenox Discharge Plan - Discharge Disposition Discharge Date: 06/01/17 Disposition: 86 Home Health Service *Condition: Stable Reason For Visit (Visit label in EMR): Overdose,aspiration pneumonia - Discharge Medications *Discharge Medications: New Amoxicillin/Potassium Clav [Amox-Clav 875-125 mg Tablet] 875 mg PO Q12HR #13 tab PEG 3350 17gm PACKET [Miralax] 17 gm PO BID packet Oxycodone/Apap 7.5/325 [Percocet 7.5/325] 1 tab PO QID PRN #20 tab PRN Reason: Pain Albuterol/Ipratropium [Duoneb] 1 unit AEROSOL QID #40 vial Continue Gabapentin [Neurontin] 600 mg PO TID ClonazePAM [Klonopin] 0.5 mg PO TID PRN PRN Reason: Anxiety Solifenacin Succinate [Vesicare] 10 mg PO DAILY Venlafaxine HCl [Venlafaxine HCl ER] 150 mg PO DAILY Changed Ibuprofen 400 mg PO PRN PRN #30 PRN Reason: Pain Discontinued Oxycodone HCl [Roxicodone] 15 mg PO QID - Discharge Packet/Instructions *Diet: Regular diet *Activity: up as tolerated *Pain Management/Treatment: Percocet up to 4x a day and Ibuprofen 400mg up to 4x a day. Daughter to dispense pain meds to patient. *Wound Care: Keep incison areas clean and dry. OK to shower with soap and water and pat dry. Additional Instructions: Take the first home dose of Augmentin tonight with supper. Do not take more than 4 doses of Percocet in 24 hours. Do not drink alcohol while on pain medication. Do not use more than 400mg of ibuprofen at a time. May take this up to 4x a day with food. (OK to take at same time, or alternating, with narcotic pain medication.). Miralax can be purchased over the counter. Take it 2x a day and decrease as needed if stools are too loose. *Expected Signs/Symptoms: Continued improvement in strength and decreasing pain. *Notify Physician if: you develop fever, nausea and vomiting, or increasing pain *During Business Hours Contact: Contact Dr. Benavidez's office. *After Business Hours Contact: Contact Dr. Benavidez's office and follow after hours instructions. *Pending Lab/Results: No Pending Lab - Referrals/Follow Up *Referrals/Follow Up: Kenji Benavidez II, MD [Family Provider] - 3 Days (see Pramod Th or Fri appoitment on 06/04 at 11:30.) Bill Hill MD [Physician] - (pt reports she has f-u with Dr. Hill this Thu.) - Patient Handouts Patient Handouts: Aspiration Pneumonia (GEN) - Dismissal Complete Discharge Instructions are:: Complete <Marco A Monteiro IV - Last Filed: 06/01/17 17:55> Discharge Information Date of admission: 05/29/17 02:51 Attending Physician: Marco A Monteiro IV, MD Primary care physician: Kenji Benavidez II, MD Consults: 05/29/17 11:04 Physician Consult [CONS] Routine Consulting Provider: Darin Porras Reason For Exam: overdose Ordering Provider has Notified [employer] Supervisor: Yes 05/31/17 09:53 Physician Consult [CONS] Routine Consulting Provider: Bill Hill Reason For Exam: post-op abd pain Ordering Provider has Notified [employer] Supervisor: Yes - Discharge Diagnosis (1) Poisoning by opiate or related narcotic Status: Acute (2) Aspiration pneumonia Status: Acute - Laboratory Labs: 06/01/17 04:25 06/01/17 04:25 - Microbiology Microbiology 05/29/17 11:05 Urine, Voided (Cc/notcc) Urine Culture - Final Mixed Bacterial Kris Objective Vital signs: Temperature 96.9 F 06/01/17 12:00 Pulse Rate 76 06/01/17 12:00 Respiratory Rate 16 06/01/17 12:00 Blood Pressure 121/73 06/01/17 12:00 Pulse Oximetry 90 06/01/17 12:00 Height/Weight/BMI: Height 5 ft Weight 106.8 kg Body Mass Index 41.7 Hospital Course This is a general summary of the patient's hospital course. For more details refer to the complete medical record. Time spent with patient: discharge greater than 30 minutes Attestation Narriative - Attestation Attestation Narrative: 06/01/17 17:55 I have independently evaluated and examined this patient. I reviewed the chart, the patient's history, and the RUNSTITCHING MACHINE OPERATOR/PA's documented findings as above. We discussed and formulated the assessment and plan as above with additions as below: Wanda has been up and ambulating with a walker. She was using a walker before surgery. Denies soa. She c/o pain with activity but says she feels ready to go home. NAD CTAB RRR abd ttp around incisions no edema Continue on Augmentin. Will f/u with PCP later this week. Daughter will be keeping track of pain meds. Has f/u with surgeon on Thu. OK to dismiss to home
== END 2017-06-01 16:15 | disposition home health service (06) | DRG 917 ==
LOC: ED 21:50 → CCU 21:50 → SUATTDRO 05-29 02:09 → CCU 05-29 02:45 → SUATTDRO 05-29 02:51 → MED 05-29 23:10
PROVIDERS: ADMIT Internal Medicine; ATTEND Hospitalist